=== PATIENT | female | born 2005 | race Caucasian/White ===

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

== ENCOUNTER → 2024-02-14 | Outpatient (CLI) | payer OTHER ==
--- NOTE | 2024-02-14 14:50 | XR ---
2 view chest HISTORY: Cough COMPARISON: None TECHNIQUE: PA and lateral views chest obtained. FINDINGS: The lungs are clear of consolidative, interstitial or masslike opacity. There is no pleural effusion, pleural thickening or pneumothorax. The heart, pulmonary vasculature, mediastinum and royal are within normal limits. The osseous structures and soft tissues of the thorax are intact. IMPRESSION: No significant abnormality. No acute cardiopulmonary disease. [facility], Workstation: [facility], 02/14/2024 2:48 PM
--- NOTE | 2024-02-14 14:52 | XR ---
Abdomen one view HISTORY: Epigastric pain. COMPARISON: None. TECHNIQUE: 2 upright views the abdomen were obtained. FINDINGS: Lung bases are clear. There is no free air beneath the diaphragm. Bowel gas pattern is nonspecific and there is no evidence of obstruction. There is a mild amount of s tool within the colon. There is no suspicious abdominal or pelvic calcifications. There is an IUD device in the pelvis. The osseous structures are intact. IMPRESSION: Nonspecific bowel gas pattern without evidence of free air or obstruction. [facility], Workstation: [facility], 02/14/2024 2:49 PM
== END | disposition home or self-care (01) ==
LOC: RADXRMAIN 13:54
PROVIDERS: ATTEND Pediatrics Adolescent Medicine
DX: R10.13 Epigastric pain (principal); R05.9 Cough, unspecified
CPT/HCPCS: 71046; 74018